=== PATIENT | female | born 1995 | race Caucasian/White ===

== ENCOUNTER → 2021-02-03 12:31 | Outpatient (CLI) | payer OTHER, SELFPAY ==
[2021-02-03 13:12] LABS: Add Manual Diff / Slide Review NO; Basophils Absolute Auto 100 /uL (0-100); Basophils Percent Auto 0.4 % (0-2); Eosinophils Absolute Auto 100 /uL (0-450); Eosinophils Percent Auto 0.7 % (2-4); Hematocrit 38.8 % (36-46); Hemoglobin 13.1 g/dL (12.0-16.0); Lymphocytes Absolute Auto 2400 /uL (1100-4500); Lymphocytes Percent Auto 19.8 % (25-40); Mean Corpuscular HGB Conc 33.8 % (30-36); Mean Corpuscular Hemoglobin 30.9 PG (26-34); Mean Corpuscular Volume 91.3 fL (80-100); Monocytes Absolute Auto 500 /uL (0-900); Monocytes Percent Auto 4.5 % (3-14); Neutrophils Absolute Auto 8900 /uL (1500-7000); Neutrophils Percent Auto 74.6 % (50-75); Platelet Count 336 X10^3/uL (150-400); Red Blood Cell Count 4.25 X10^6/uL (4.0-5.2); Red Cell Distribution Width 13.1 % (11.6-14.8)
[2021-02-03 13:36] LABS: Appearance Urine UA CLEAR; Bilirubin Urine UA NEGATIVE (NEGATIVE); Color Urine UA YELLOW; Glucose Urine UA NEGATIVE (Negative); Ketones Urine UA NEGATIVE (NEGATIVE); Leukocyte Esterase Urine UA NEGATIVE (NEGATIVE); Nitrite Urine UA NEGATIVE (Negative); Occult Blood Urine UA NEGATIVE (Negative); Protein Urine UA NEGATIVE (Negative); Specific Gravity Urine UA <=1.005 (1.000-1.035); Urobilinogen Urine UA 0.2 E.U./dL (0.2)
[2021-02-03 13:37] LABS: pH Urine UA 6.5 (4.5-8.0)
[2021-02-03 19:50] LABS: Rubella Antibody IgG 9.6 IU/mL (>15)
[2021-02-03 19:58] LABS: Hepatitis B Surface Antigen NEGATIVE s/c (NEGATIVE)
[2021-02-03 20:13] LABS: HIV 1 & 2 Ab/Ag 4th Gen Combo NEGATIVE (NEGATIVE); Hep C Virus Ab w/Reflex Quant NEGATIVE s/c (NEGATIVE)
[2021-02-04 06:10] LABS: RPR Screen Non Reactive (Non Reactive)
[2021-02-04 15:11] LABS: Varicella IgG Antibody 455 index (Immune >165)
== END ==
PROVIDERS: Referring Provider Specialist; Visit Provider Specialist
DX: Z34.81 Encounter for supervision of other normal pregnancy, first trimester (principal)
CPT/HCPCS: 36415; 80055; 81003; 86787; 86803; 86850; 86900; 86901; 87086; 87389

== ENCOUNTER → 2021-05-01 11:59 | Outpatient (CLI) | payer OTHER, SELFPAY ==
--- NOTE | 2021-05-01 12:00 | DI.US.S_ITS ---
PROCEDURE: US OB >= 14 WEEKS FETUS INDICATIONS: ANATOMY OUTSIDE/PRIOR DATING DATA: Last menstrual period (LMP): 12/03/2020. LMP-based estimated date of delivery (MELVIN): . First dating scan (date and location): 02/03/2021. Estimated date of delivery (MELVIN) from first dating scan: 09/18/2021. TECHNIQUE: Real-time scanning was performed of the fetus, with image documentation and biometric measurements. Endovaginal scanning: Not performed. COMPARISON: [facility], , OB >= 14 WEEKS FETUS, 04/07/2021, 11:21. [facility], , OB <= 14 WEEKS FETUS, 02/03/2021, 12:13. [facility], , OB >= 14 WEEKS FETUS, 03/03/2021, 10:50. FINDINGS: General: A single living intrauterine gestation is present. Presentation: Variable. Placenta: Placental position is posterior , without previa. Amniotic fluid index: 16.1 cm, normal range is 5-24 cm. heart rate: 80-195 beats per minute. Maternal cervical canal: 3.5 cm long. Normal lower limit is 2.5 cm. biometrics: Biparietal diameter: 21 weeks 0 day Head circumference: 20 weeks 4 days Abdominal circumference: 21 weeks 4 days Femur length: 20 weeks 4 days Estimated gestational age from initial scan: 20 weeks 0 day. Composite gestational age from present scan: 21 weeks 0 day Estimated weight and percentile: 397 g; 94% for gestation age. Measurement variability for biometric dating: +/- 7 days from 14 weeks to 15 weeks 6 days gestation, +/- 10 days from 16 weeks to 21 weeks 6 days gestation, +/- 2 weeks from 22 weeks to 27 weeks 6 days gestation, +/- 3 weeks for 28 weeks gestation or later. weight reference: 4500 g or EFW >90/95% is considered macrosomia or large for gestational age. EFW <10% is small for gestational age. EFW 5% or less is considered intra-uterine growth restriction. Anatomic survey: Neuro: Ventricles are non-dilated at less than 10 mm. Cisterna magna is normal at 3-11 mm. Cerebellum is normal in size and morphology. Nuchal skin fold: 6.0 mm. (less than 6 mm between 14-21 weeks gestational age). Face: Nose and lips, facial profile are normal. Spine: No evidence for spina bifida. Heart: 4-chambered heart is present, with normal ventricular outflow tracts. Diaphragm: Diaphragm is intact. Stomach: Left-sided stomach is present. Kidneys: No hydronephrosis. Normal is less than 5 mm in 2nd trimester, less than 7 mm in 3rd trimester. Cord: 3-vessel cord has orthotopic insertion. Bladder: Normal in size. Extremities: All 4 extremities identified. IMPRESSION: 1. A single living intrauterine gestation with appropriate interval growth. 2. heart rate highly variable with acceleration and deceleration during the scan ( heart rate from 80-195 BPM). 3. Nuchal fold measures 6.0 mm, just above the normal limits. 4. Otherwise normal anatomic survey. 5. weight at the 94th percentile. The preliminary result was given to by ground source heat pump technician. Dictated by: Jack Ho M.D. on 05/01/2021 at 15:10 Approved by: Jack Ho M.D. on 05/01/2021 at 15:24
== END ==
PROVIDERS: Referring Provider Specialist; Visit Provider Specialist
DX: Z34.82 Encounter for supervision of other normal pregnancy, second trimester (principal); Z3A.21 21 weeks gestation of pregnancy
CPT/HCPCS: 76811

== ENCOUNTER → 2021-05-08 08:23 | Outpatient (CLI) | payer OTHER, SELFPAY ==
[2021-05-08 09:35] LABS: Free T4, Direct Thyroxine 0.87 ng/dL (0.78-2.19)
[2021-05-08 09:49] LABS: Thyroid Stimulating Hormone 1.24 uIU/mL (0.47-4.68)
[2021-05-09 00:32] LABS: Alpha Fetoprotein 39.4 ng/mL (0.0-8.3); Thyroid Peroxidase Antibodies <8 IU/mL (0-34)
[2021-05-09 17:41] LABS: SS A Ro Sjogrens Antibody < 0.2 AI (0.0-0.9); SS B La Sjogrens Antibody < 0.2 AI (0.0-0.9)
[2021-05-09 18:11] LABS: Anti Thyroglobulin Antibody <1.0 IU/mL (0.0-0.9)
[2021-05-09 18:11] LABS: Anti Thyroglobulin Antibody <1.0 IU/mL (0.0-0.9)
== END ==
PROVIDERS: Referring Provider Specialist; Visit Provider Specialist
DX: O35.9XX0 Maternal care for (suspected) fetal abnormality and damage, unspecified, not applicable or unspecified (principal)
CPT/HCPCS: 36415; 82105; 84439; 84443; 86235; 86376; 86800

== ENCOUNTER → 2021-06-06 08:01 | Outpatient (CLI) | payer OTHER, SELFPAY ==
[2021-06-06 09:54] LABS: Hemoglobin 11.4 g/dL (12.0-16.0)
[2021-06-06 10:25] LABS: GTT (PREG) 1 Hour PP 50gm Dose 140 mg/dL (76-139)
== END ==
PROVIDERS: PCP Student in an Organized Health Care Education/Training Program; Referring Provider Specialist; Visit Provider Specialist
DX: Z34.82 Encounter for supervision of other normal pregnancy, second trimester (principal); Z3A.26 26 weeks gestation of pregnancy
CPT/HCPCS: 36415; 82950; 85014; 85018

== ENCOUNTER → 2021-06-11 07:32 | Outpatient (CLI) | payer OTHER, SELFPAY ==
[2021-06-11 10:19] LABS: Glucose Fasting Gestational 89 mg/dL (76-95)
[2021-06-11 10:21] LABS: Glucose 1 Hour Gest 149 mg/dL (76-180)
[2021-06-11 10:51] LABS: Glucose Tol Interp,Gestational INTERPRETATION
[2021-06-11 11:01] LABS: Glucose 2 Hour Gest 108 mg/dL (76-155)
[2021-06-11 12:44] LABS: Glucose 3 Hour Gest 103 mg/dL (76-140)
== END ==
PROVIDERS: PCP Student in an Organized Health Care Education/Training Program; Referring Provider Specialist; Visit Provider Specialist
DX: O99.810 Abnormal glucose complicating pregnancy (principal)
CPT/HCPCS: 36415; 82951; 82952

== ENCOUNTER → 2021-08-12 14:40 | Outpatient (CLI) | payer OTHER, SELFPAY ==
[2021-08-13 09:00] LABS: Strep Grp B PCR NEG for Grp B Strep
== END ==
PROVIDERS: PCP Student in an Organized Health Care Education/Training Program; Visit Provider Specialist
DX: Z34.83 Encounter for supervision of other normal pregnancy, third trimester (principal); Z3A.36 36 weeks gestation of pregnancy
CPT/HCPCS: 87653

== ENCOUNTER 2021-09-07 07:35 | Inpatient (IN) | payer OTHER, SELFPAY ==
[2021-09-07 09:06] LABS: COVID19 -Nasal RAPID Negative (Negative)
[2021-09-07] MEDS: LACTATED RINGERS 1,000 ML 100 ML IV ×2 (09:16→12:08)
[2021-09-07] MEDS: OXYTOCIN PREMIX 30 UNIT/500 ML PLAST..BAG IV (09:16)
[2021-09-07 09:47] VITALS: BP 119/73
--- NOTE | 2021-09-07 09:51 | PM.OBHP.1 ---
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 Workup totally normal. cardiology recommend EKG follow-up on baby after delivery. Preadmission Labs Blood type: B (+) positive -: Antibody screen: negative, GBS status: negative, HBsAG: negative, HIV: negative and RPR/VDLR: negative -: Chlamydia screen: not detected and Gonorrhea screen: not detected -: Rubella: not immune and Varicella: immune HCAB: negative 1 hr GTT: 140 3 hr GTT: 1 hr (149), 2 hr (108) and 3 hr (103) Fasting blood glucose: 89 Prior (ies) History: 08/31/2019 40 week gestation 8 lb 2 oz female Evaluation Evaluation Baseline heart rate: 150 Variability: Moderate (11-25) monitor accelerations: Present Monitor Decelerations: Absent Contraction Frequency (minutes): 0 Category of Tracing: Reactive Status: Category l Dilation (cm): 3 Effacement (%): 6 station: -2 Position of cervix: mid Consistency: soft PFSH Medical History (Updated 05/07/21 @ 18:18 by Renetta Johnson MD) Abnormal Pap smear of cervix (~10/2018) Accident (~2014) Acid reflux (~2013) Chicken pox (~1994) Chlamydia contact, treated (~2013) 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 Sister Asthma Family/Other Cancer Breast cancer Melanoma Swelling Social History marital status: household members: other (Share a living space with X 5 people ) lives independently: No ([place] will get Base Housing ) pets and animals: Yes (X 2 dogs and X 1 cat (indoor cat) in their shared living space ) education level: high school occupational status: employed ([employer] : [employer]) current occupational exposures/hazards: Yes rohit/zoroastrianism: Scientologist special rohit needs: No Smoking Status: Never smoker second hand exposure: No alcohol intake: former (Stopped before daughter was born ) substance use type: does not use Meds Home Medications and Allergies Home Medications Medication Instructions Recorded Confirmed Type prenat.vits,leann,tut-atji-[id number] 1 tab PO DAILY 01/28/21 09/07/21 History Allergies Allergy/AdvReac Type Severity Reaction Status Date / Time No Known Drug Allergies Allergy Verified 09/07/21 09:50 Review of Systems Review of Systems Narrative: No headaches, scotomata, epigastric pain. Good movement. No leakage of fluid. No fevers. OB Exam Narrative Exam Narrative: HEENT exam within normal limits. Lungs are clear to auscultation percussion. Heart is regular rate and rhythm no S3-S4 murmurs. Abdomen is soft, nontender. Fetus is vertex. Extremities without edema and nontender. Objective Labs Result Diagrams: 09/07/21 09:45 Labs: Laboratory Results - last 24 hr 09/07/21 08:41 SARS-CoV-2 (PCR) Negative Assessment and Plan Assessment and Plan Assessment and Plan narrative: 39 week gestation with favorable of cervix requesting induction for child and adolescent therapist issues. 2nd trimester bradycardia with cardiology workup negative. heart rate has been normal since. Cardiology recommended EKG on the baby after delivery.
[2021-09-07 09:59] LABS: Add Manual Diff / Slide Review NO; Basophils Absolute Auto 0 /uL (0-100); Basophils Percent Auto 0.2 % (0-2); Eosinophils Absolute Auto 0 /uL (0-450); Eosinophils Percent Auto 0.4 % (2-4); Hematocrit 29.2 % (36-46); Hemoglobin 9.9 g/dL (12.0-16.0); Lymphocytes Absolute Auto 1200 /uL (1100-4500); Lymphocytes Percent Auto 14.2 % (25-40); Mean Corpuscular Hemoglobin 31.1 PG (26-34); Mean Corpuscular Volume 91.7 fL (80-100); Monocytes Absolute Auto 500 /uL (0-900); Monocytes Percent Auto 5.7 % (3-14); Neutrophils Absolute Auto 6500 /uL (1500-7000); Neutrophils Percent Auto 79.5 % (50-75); Platelet Count 161 X10^3/uL (150-400); Red Blood Cell Count 3.18 X10^6/uL (4.0-5.2); Red Cell Distribution Width 13.5 % (11.6-14.8); White Blood Cell Count 8.2 X10^3/uL (4.5-11.0)
[2021-09-07] MEDS: FENT 2MCG/ML BUPIV 0.125% EPI 200 MCG/100 ML PLAST..BAG 12 MCG EPIDURAL (12:06)
--- NOTE | 2021-09-07 15:54 | PM.OBPRVD ---
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 She was started on Pitocin. She had AROM for clear fluid. She received an epidural catheter for pain control. heart tones category 1 to category 2 throughout labor. She had a spontaneous vaginal delivery over an intact perineum. The viable male infant was placed on maternal abdomen. After the cord stopped pulsating the cord was clamped, cut, and cord bloods obtained. The placenta delivered spontaneously, intact, with 3 vessels. There were no cervical or vaginal tears. A first-degree perineal tear was repaired with 3 0 chromic suture in the usual 2 layer fashion. Both and mother are doing well. [place] Baby 1: gender: Male Presentation: vertex Position: Right Occiput Anterior Placenta delivery description: Spontaneous Cord Vessel Description: 3 Vessels, Nuchal Cord and Loose score (1 min): 8 score (5 min): 9 Plan for aftercare: Routine care
[2021-09-07] MEDS: LANOLIN OINT 7 GM 1 APPLIC TOP (18:40)
[2021-09-07] MEDS: IBUPROFEN 600 MG TABLET PO (21:03)
[2021-09-07] MEDS: FERROUS SULFATE 325 MG TABLET PO (21:04)
[2021-09-07] MEDS: ACETAMINOPHEN 325 MG TABLET 650 MG PO (21:04)
[2021-09-08] MEDS: IBUPROFEN 600 MG TABLET PO ×3 (03:12→15:18)
[2021-09-08] MEDS: ACETAMINOPHEN 325 MG TABLET 650 MG PO ×3 (03:12→15:18)
[2021-09-08 06:53] LABS: Add Manual Diff / Slide Review NO; Basophils Absolute Auto 0 /uL (0-100); Basophils Percent Auto 0.4 % (0-2); Eosinophils Absolute Auto 100 /uL (0-450); Eosinophils Percent Auto 0.6 % (2-4); Hematocrit 34.3 % (36-46); Hemoglobin 11.7 g/dL (12.0-16.0); Lymphocytes Absolute Auto 1600 /uL (1100-4500); Lymphocytes Percent Auto 12.7 % (25-40); Mean Corpuscular HGB Conc 34.1 % (30-36); Mean Corpuscular Hemoglobin 31.2 PG (26-34); Mean Corpuscular Volume 91.7 fL (80-100); Monocytes Absolute Auto 700 /uL (0-900); Monocytes Percent Auto 5.9 % (3-14); Neutrophils Absolute Auto 10200 /uL (1500-7000); Neutrophils Percent Auto 80.4 % (50-75); Platelet Count 175 X10^3/uL (150-400); Red Blood Cell Count 3.75 X10^6/uL (4.0-5.2); Red Cell Distribution Width 13.8 % (11.6-14.8); White Blood Cell Count 12.7 X10^3/uL (4.5-11.0)
[2021-09-08] MEDS: FERROUS SULFATE 325 MG TABLET PO (08:13)
--- NOTE | 2021-09-08 09:36 | P.DS_ITS ---
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 She had a spontaneous vaginal delivery with repair of a first-degree tear. She is breast-feeding without difficulty. She is urinating and ambulating well. No headaches, scotomata, epigastric pain. Peripartum Data Infant Delivery Method: Natural Vaginal Laceration Description: Perineal - 1st Degree Procedures: Pitocin induction, epidural catheter, spontaneous vaginal delivery, repair of first-degree tear complications: none [place] 1: Gender: Male Disposition of : home Discharge Diagnosis (1) Vaginal delivery: Status: Acute Status at Discharge Cognitive/behavioral status at discharge: oriented Functional status at discharge: independent ambulation Overall status at discharge: patient is progressing back to baseline Time Spent with Patient Time attestation: Total time spent providing and/or coordinating discharge services: Time spent: Less than 30 minutes Objective Labs Result Diagrams: 09/08/21 06:32 Labs: Laboratory Results - last 24 hr 09/07/21 09/07/21 09/08/21 09:45 09:45 06:32 WBC 8.2 12.7 H D RBC 3.18 L 3.75 L Hgb 9.9 L 11.7 L Hct 29.2 L 34.3 L MCV 91.7 91.7 MCH 31.1 31.2 MCHC 34.0 34.1 RDW 13.5 13.8 Plt Count 161 175 Neut % (Auto) 79.5 H 80.4 H Lymph % (Auto) 14.2 L 12.7 L [place] % (Auto) 5.7 5.9 Eos % (Auto) 0.4 L 0.6 L Baso % (Auto) 0.2 0.4 Neut # (Auto) 6500 86496 H Lymph # (Auto) 1200 1600 [place] # (Auto) 500 700 Eos # (Auto) 0 100 Baso # (Auto) 0 0 Blood Type B Positive Antibody Screen Negative Exam Vital Signs (past 8 hours): Patient's blood pressure 125/78, pulse of 84, temperature 98.2? Narrative Exam Narrative: Abdomen is soft, nontender. Uterus is firm, at U, nontender. Repair is intact. Mild lochia. Extremities without edema and nontender. Patient is B positive, rubella nonimmune so will receive the rubella vaccine prior to discharge, she received the Tdap in 3rd trimester. Discharge Plan Discharge Plan Patient Disposition: Home Discharge orders & Medications Prescriptions: Continued prenat.vits,leann,rxc-hwnt-sdqzr Tablet 1 tab PO DAILY 0RF Follow up/Referrals: Renetta Johnson MD [Physician] - 6 Weeks Trevon Penn [Primary Care Provider] - Diet/Activity/Treatments Diet: Diet as Tolerated Activity: Nothing in vagina for 6 weeks Visit Report/Discharge Packet Stand Alone Forms: Discharge: Care Discharge Data Primary Care Provider: Trevon Penn
[2021-09-08] MEDS: MEASLES,MUMPS,RUBELLA VACC/PF 0.5 ML VIAL SUBCUT (13:06)
[2021-09-08] MEDS: DOCUSATE 100 MG CAPSULE PO (15:18)
[2021-09-08 17:02] VITALS: BP 125/78; PULSE 84; RESP 20; TEMP 36.8
== END 2021-09-08 15:50 | disposition home or self-care (01) | DRG 807 ==
PROVIDERS: Admitting Provider Specialist; PCP Student in an Organized Health Care Education/Training Program; Referring Provider Specialist; Visit Provider Specialist
DX: O70.0 First degree perineal laceration during delivery (principal); Z37.0 Single live birth; Z3A.39 39 weeks gestation of pregnancy; O69.81X0 Labor and delivery complicated by cord around neck, without compression, not applicable or unspecified; Z20.822 Contact with and (suspected) exposure to COVID-19
CPT/HCPCS: 01967; 36415; 59050; 59400; 85025; 86850; 86900; 86901; 87635; C9803; G0379; J2590

== ENCOUNTER → 2022-09-03 11:25 | Outpatient (CLI) | payer OTHER, SELFPAY ==
[2022-09-03 16:28] LABS: Urine N gonorrhoeae NOT DETECTED
[2022-09-03 16:33] LABS: Urine Chlamydia NOT DETECTED
== END ==
PROVIDERS: PCP Student in an Organized Health Care Education/Training Program; Visit Provider Obstetrics & Gynecology
DX: Z34.81 Encounter for supervision of other normal pregnancy, first trimester (principal); Z3A.11 11 weeks gestation of pregnancy
CPT/HCPCS: 87491; 87591

== ENCOUNTER → 2022-09-03 11:50 | Outpatient (CLI) | payer OTHER, SELFPAY ==
[2022-09-03 13:35] LABS: Bilirubin Urine UA NEGATIVE (NEGATIVE); Color Urine UA YELLOW; Glucose Urine UA NEGATIVE (Negative); Ketones Urine UA NEGATIVE (NEGATIVE); Leukocyte Esterase Urine UA NEGATIVE (NEGATIVE); Nitrite Urine UA NEGATIVE (Negative); Occult Blood Urine UA NEGATIVE (Negative); Protein Urine UA NEGATIVE (Negative); Specific Gravity Urine UA 1.025 (1.000-1.035)
[2022-09-03 13:39] LABS: Appearance Urine UA Clear
[2022-09-03 13:41] LABS: Add Manual Diff / Slide Review NO; Basophils Absolute Auto 0 /uL (0-100); Basophils Percent Auto 0.2 % (0-2); Eosinophils Absolute Auto 100 /uL (0-450); Eosinophils Percent Auto 0.8 % (2-4); Hematocrit 38.9 % (36-46); Hemoglobin 13.1 g/dL (12.0-16.0); Lymphocytes Absolute Auto 1900 /uL (1100-4500); Lymphocytes Percent Auto 19.7 % (25-40); Mean Corpuscular HGB Conc 33.7 % (30-36); Mean Corpuscular Hemoglobin 30.3 PG (26-34); Mean Corpuscular Volume 89.7 fL (80-100); Monocytes Absolute Auto 400 /uL (0-900); Monocytes Percent Auto 4.5 % (3-14); Neutrophils Absolute Auto 7000 /uL (1500-7000); Neutrophils Percent Auto 74.8 % (50-75); Platelet Count 281 X10^3/uL (150-400); Red Blood Cell Count 4.33 X10^6/uL (4.0-5.2); Red Cell Distribution Width 12.9 % (11.6-14.8); White Blood Cell Count 9.4 X10^3/uL (4.5-11.0)
[2022-09-04 06:40] LABS: RPR Screen Non Reactive (Non Reactive); Varicella IgG Antibody 453 index (Immune >165)
[2022-09-06 15:23] LABS: Hepatitis B Surface Antigen NEGATIVE s/c (NEGATIVE)
[2022-09-06 15:40] LABS: HIV 1 & 2 Ab/Ag 4th Gen Combo NEGATIVE (NEGATIVE); Hep C Virus Ab w/Reflex Quant NEGATIVE s/c (NEGATIVE)
== END ==
PROVIDERS: PCP Student in an Organized Health Care Education/Training Program; Referring Provider Obstetrics & Gynecology; Visit Provider Obstetrics & Gynecology
DX: Z34.81 Encounter for supervision of other normal pregnancy, first trimester (principal); Z3A.11 11 weeks gestation of pregnancy
CPT/HCPCS: 36415; 80055; 81003; 86787; 86803; 86850; 86900; 86901; 87086; 87389; 87491; 87591

== ENCOUNTER → 2022-11-01 10:12 | Outpatient (CLI) | payer OTHER, SELFPAY ==
--- NOTE | 2022-11-01 10:14 | DI.US.S_ITS ---
PROCEDURE: US OB >= 14 WEEKS FETUS INDICATIONS: ANATOMY OUTSIDE/PRIOR DATING DATA: Last menstrual period (LMP): 06/05/2022. LMP-based estimated date of delivery (MELVIN): 03/22/2023. First dating scan (date and location): Today's exam. Estimated date of delivery (MELVIN) from first dating scan: 03/21/2023. The calculations are made using the ultrasound MELVIN of 03/21/2023. TECHNIQUE: Real-time scanning was performed of the fetus, with image documentation and biometric measurements. Endovaginal scanning: Not performed COMPARISON: [facility], , OB >= 14 WEEKS FETUS, 06/30/2021, 11:14. FINDINGS: General: A single living intrauterine gestation is present. Presentation: Variable. Placenta: Placental position is posterior, without previa. Amniotic fluid index: 16.6 cm, normal range is 5-24 cm. Single deepest vertical pocket is 4.6 cm. heart rate: 149 beats per minute. Maternal cervical canal: 4.6 cm long. Normal lower limit is 2.5 cm. biometrics: Biparietal diameter: 4.5 cm, 19 weeks 5 days Head circumference: 17.5 cm, 20 weeks Abdominal circumference: 15.4 cm, 20 weeks 4 days Femur length: 3.2 cm, 19 weeks 6 days Clinically estimated gestational age: 21 weeks 2 days Composite gestational age from present scan: 20 weeks 0 days Estimated weight and percentile: 337 g, corresponding to 6 percentile Anatomic survey: Neuro: Ventricles are non-dilated at less than 10 mm. Cisterna magna is normal at 3-11 mm. Cerebellum is normal in size and morphology. Nuchal skin fold: Normal at less than 6 mm between 14-21 weeks gestational age. Face: Nose and lips, facial profile are normal. Spine: No evidence for spina bifida. Heart: 4-chambered heart is present, with normal ventricular outflow tracts. Diaphragm: Diaphragm is intact. Stomach: Left-sided stomach is present. Kidneys: No hydronephrosis. Normal is less than 5 mm in 2nd trimester, less than 7 mm in 3rd trimester. Cord: 3-vessel cord has orthotopic insertion. Bladder: Normal in size. Extremities: All 4 extremities identified. IMPRESSION: 1. Single living intrauterine at 20 weeks and 0 days, corresponding to MELVIN of 03/21/2023 based on today's ultrasound. 2. Estimated weight of 337 g, corresponding to 6 percentile. We strive to produce accurate, complete, and clear reports of imaging services. To assist us in improving patient care, this report was composed using standard report templates and voice recognition software. Therefore, it may contain abnormal punctuation, insertions and/or omissions. Occasional wrong-word or sound-alike substitutions may occur. Though we review the report and make efforts to correct it, we do recommend that the report be read carefully in proper context to recognize any text inaccuracies. Dictated by: Kimani Alfonso M.D. on 11/01/2022 at 11:57 Approved by: Kimani Alfonso M.D. on 11/01/2022 at 12:03
== END ==
PROVIDERS: PCP Student in an Organized Health Care Education/Training Program; Referring Provider Obstetrics & Gynecology; Visit Provider Obstetrics & Gynecology
DX: Z34.82 Encounter for supervision of other normal pregnancy, second trimester (principal); Z3A.20 20 weeks gestation of pregnancy
CPT/HCPCS: 76811

== ENCOUNTER → 2022-11-30 09:48 | Outpatient (CLI) | payer OTHER, SELFPAY ==
--- NOTE | 2022-11-30 09:49 | DI.US.S_ITS ---
PROCEDURE: US OB LIMITED INDICATIONS: SGA OUTSIDE/PRIOR DATING DATA: Last menstrual period (LMP): 06/05/2022. LMP-based estimated date of delivery (MELVIN): 03/12/2023. First dating scan (date and location): 11/01/2022. Estimated date of delivery (MELVIN) from first dating scan: 03/21/2023. TECHNIQUE: Real-time scanning was performed of the fetus, with image documentation and biometric measurements. Endovaginal scanning: Not performed COMPARISON: [facility], , OB >= 14 WEEKS FETUS, 11/01/2022, 10:33. FINDINGS: General: A single living intrauterine gestation is present. Presentation: Breech. Placenta: Placental position is posterior , without previa. Amniotic fluid index: 17.2 cm, normal range is 5-24 cm. Single deepest vertical pocket is 5.2 cm. heart rate: 153 beats per minute. Maternal cervical canal: 4.8 cm long. Normal lower limit is 2.5 cm. biometrics: Biparietal diameter: 5.9 cm 24 weeks 0 days Head circumference: 22.1 cm 24 weeks 1 day Abdominal circumference: 20.3 cm 24 weeks 6 days Femur length: 4.4 cm 24 weeks 2 days estimated gestational age: 24 weeks 1 day Composite gestational age from present scan: 24 weeks 2 days Estimated weight and percentile: 708 g, 60th percentile Other: Not applicable. IMPRESSION: 1. Single living intrauterine in breech presentation. 2. Estimated weight at the 60th percentile. We strive to produce accurate, complete, and clear reports of imaging services. To assist us in improving patient care, this report was composed using standard report templates and voice recognition software. Therefore, it may contain abnormal punctuation, insertions and/or omissions. Occasional wrong-word or sound-alike substitutions may occur. Though we review the report and make efforts to correct it, we do recommend that the report be read carefully in proper context to recognize any text inaccuracies. Dictated by: Eduin Olivarez M.D. on 11/30/2022 at 14:24 Approved by: Eduin Olivarez M.D. on 11/30/2022 at 14:32
== END ==
PROVIDERS: PCP Student in an Organized Health Care Education/Training Program; Referring Provider Obstetrics & Gynecology; Visit Provider Obstetrics & Gynecology
DX: Z3A.24 24 weeks gestation of pregnancy; O36.5920 Maternal care for other known or suspected poor fetal growth, second trimester, not applicable or unspecified
CPT/HCPCS: 76815

== ENCOUNTER → 2022-12-20 07:48 | Outpatient (CLI) | payer OTHER, SELFPAY ==
[2022-12-20 10:01] LABS: Hematocrit 34.3 % (36-46); Hemoglobin 11.8 g/dL (12.0-16.0)
[2022-12-20 10:29] LABS: GTT (PREG) 1 Hour PP 50gm Dose 105 mg/dL (76-139)
== END ==
PROVIDERS: PCP Student in an Organized Health Care Education/Training Program; Referring Provider Obstetrics & Gynecology; Visit Provider Obstetrics & Gynecology
DX: Z34.82 Encounter for supervision of other normal pregnancy, second trimester (principal); Z3A.26 26 weeks gestation of pregnancy
CPT/HCPCS: 36415; 82950; 85014; 85018

== ENCOUNTER → 2023-01-10 12:19 | Outpatient (CLI) | payer OTHER, SELFPAY ==
--- NOTE | 2023-01-10 12:20 | DI.US.S_ITS ---
PROCEDURE: US OB LIMITED INDICATIONS: GROWTH ULTRASOUND OUTSIDE/PRIOR DATING DATA: Last menstrual period (LMP): 06/05/2022 LMP-based estimated date of delivery (MELVIN): 03/12/2023 First dating scan (date and location): 11/01/2022 Estimated date of delivery (MELVIN) from first dating scan: 03/21/2023 The calculations are made using the working MELVIN of 03/21/2023. TECHNIQUE: Real-time scanning was performed of the fetus, with image documentation and biometric measurements. Endovaginal scanning: Not indicated COMPARISON: [facility], US OB LIMITED, 11/30/2022, 10:05. FINDINGS: General: A single living intrauterine gestation is present. Presentation: Breech Placenta: Placental position is posterior, without previa. Amniotic fluid index: 19.9 cm, normal range is 5-24 cm. Single deepest vertical pocket is 6.2 cm. heart rate: 135 beats per minute. Maternal cervical length: 4.3 cm long. Normal lower limit is 2.5 cm. biometrics: Biparietal diameter: 7.6 cm, 30 weeks, 5 days. Head circumference: 27.9 cm, 30 weeks, 4 days. Abdominal circumference: 26.6 cm, 30 weeks, 5 days. Femur length: 5.8 cm, 30 weeks, 2 days. Clinically estimated gestational age: 30 weeks, 0 day. Composite gestational age from present scan: 30 weeks, 4 days. Estimated weight and percentile: 1597 grams, 58 percent. Other: Not applicable. IMPRESSION: 1. Single live intrauterine gestation with fetus in breech presentation. heart rate is 135 beats per minute. Normal amount of amniotic fluid. Normal growth. Estimated weight is at 58 percent. We strive to produce accurate, complete, and clear reports of imaging services. To assist us in improving patient care, this report was composed using standard report templates and voice recognition software. Therefore, it may contain abnormal punctuation, insertions and/or omissions. Occasional wrong-word or sound-alike substitutions may occur. Though we review the report and make efforts to correct it, we do recommend that the report be read carefully in proper context to recognize any text inaccuracies. Dictated by: Mc Ernandez M.D. on 01/10/2023 at 13:54 Approved by: Mc Ernandez M.D. on 01/10/2023 at 13:56
== END ==
PROVIDERS: PCP Student in an Organized Health Care Education/Training Program; Referring Provider Obstetrics & Gynecology; Visit Provider Obstetrics & Gynecology
DX: O26.13 Low weight gain in pregnancy, third trimester (principal); Z3A.30 30 weeks gestation of pregnancy
CPT/HCPCS: 76815

== ENCOUNTER 2023-02-01 17:19 | Observation (INO) | payer OTHER, SELFPAY ==
--- NOTE | 2023-02-01 18:42 | PM.OBTRLD ---
Visit Information Visit Information Date of evaluation: 02/01/23 Primary OB Provider: Layo Corbett On-call OB Provider: Karo Rodriguez Reason for Evaluation: Yes other Comments/Additional reasons for admission: 27YO @ 33wks 0 days here for evaluation of not feeling well. Was sitting at work and started to feel unwell a few hours ago: lightheaded, dizzy with low pubic discomfort and mild cramping. No vaginal bleeding or leaking of fluid. Vital Signs Vital Signs: BP 119/71, HR 109, T 36.4C Temporal, SpO2 96% on RA HR 83 on discharge after 1L LR IVFB. 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 ) rohit/lutheran: Yarsanism special rohit needs: No travel history: over 6 months ago seatbelt use: always water heater temp set < 120 deg: Yes working smoke detector in home: Yes fire extinguisher in home: Yes carbon monox detector in home: Yes firearms in home: Yes firearms unloaded and locked: Yes do you feel safe at home: Yes Smoking Status: Never smoker second hand exposure: No alcohol intake: former (~1/week when not ) substance use type: does not use during the past year weight has: remained stable well-balanced diet: about half the time daily servings fruits/ve-1 (1-2) caffeine: Yes Type(s) of exercise: none Review of Systems Review of Systems ROS: Yes All systems reviewed with the patient and are negative except as otherwise documented Exam Vital Signs (past 8 hours): see above Presentation: vertex Objective Labs Labs: UA unremarkable, see chart for labs Evaluation Evaluation Baseline heart rate: 130 Variability: Moderate (11-25) monitor accelerations: Present Monitor Decelerations: Absent Category of Tracing: Reactive Comments: uterine irritability by toco upon arrival Diagnosis, Plan/Disposition Final Diagnosis (1) Dizziness of unknown cause: Status: Acute Plan/Disposition Plan: Dizziness and cramping resolved after 1L of IV fluids. Given resolution of tachycardia and presenting symptoms, patient was discharged to home with routine precautions. Follow-up with primary OB provider as previously scheduled. OB Disposition: home
[2023-02-01 18:55] LABS: Appearance Urine UA CLEAR; Bilirubin Urine UA NEGATIVE (NEGATIVE); Color Urine UA YELLOW; Glucose Urine UA NEGATIVE (Negative); Ketones Urine UA NEGATIVE (NEGATIVE); Leukocyte Esterase Urine UA TRACE (NEGATIVE); Nitrite Urine UA NEGATIVE (Negative); Occult Blood Urine UA NEGATIVE (Negative); Protein Urine UA NEGATIVE (Negative); Specific Gravity Urine UA 1.015 (1.000-1.035); Urobilinogen Urine UA 0.2 E.U./dL (0.2)
[2023-02-01 19:09] LABS: Bacteria Urine Few (2-10); Culture Indicated Urine Specimen Cultured; RBC Urine None Seen (0-5/HPF); Squamous Epithelial Cell Urine 5-10 /HPF (0-5/HPF); WBC Urine 0-1/HPF (0-5/HPF)
== END 2023-02-01 20:50 | disposition home or self-care (01) ==
LOC: LABOR 17:21
PROVIDERS: Nurse Practitioner Obstetrics & Gynecology; Admitting Provider Obstetrics & Gynecology; PCP Student in an Organized Health Care Education/Training Program; Referring Provider Obstetrics & Gynecology; Visit Provider Obstetrics & Gynecology
DX: O99.891 Other specified diseases and conditions complicating pregnancy (principal); O26.893 Other specified pregnancy related conditions, third trimester; R42 Dizziness and giddiness; R00.0 Tachycardia, unspecified; Z3A.33 33 weeks gestation of pregnancy
CPT/HCPCS: 59025; 59050; 81001; 87086; 96360; G0378; G0379

== ENCOUNTER → 2023-02-21 09:46 | Outpatient (CLI) | payer OTHER, SELFPAY ==
[2023-02-22 07:59] LABS: Strep Grp B PCR NEG for Grp B Strep
== END ==
PROVIDERS: PCP Student in an Organized Health Care Education/Training Program; Visit Provider Physician Assistant Medical
DX: Z34.83 Encounter for supervision of other normal pregnancy, third trimester (principal); Z3A.36 36 weeks gestation of pregnancy
CPT/HCPCS: 87653

== ENCOUNTER → 2023-02-24 12:27 | Outpatient (CLI) | payer OTHER, SELFPAY ==
--- NOTE | 2023-02-24 12:28 | DI.US.S_ITS ---
PROCEDURE: US OB LIMITED INDICATIONS: position check OUTSIDE/PRIOR DATING DATA: Last menstrual period (LMP): 06/05/2022. LMP-based estimated date of delivery (MELVIN): 03/12/2023. First dating scan (date and location): 11/01/2022. Estimated date of delivery (MELVIN) from first dating scan: 03/21/2023. The calculations are made using the sonographic MELVIN of 03/21/2023. TECHNIQUE: Real-time scanning was performed of the fetus, with image documentation. Endovaginal scanning: Not performed COMPARISON: [facility], OB LIMITED, 01/10/2023, 12:47. FINDINGS: A single living intrauterine gestation is present. Presentation: Vertex. Placenta: Placental position is left posterior, without previa. Amniotic fluid index: 13.7 cm, normal range is 5-24 cm. Single deepest vertical pocket is 6.1 cm. heart rate: 133 beats per minute. Maternal cervical canal: Not visualized IMPRESSION: Single living intrauterine in vertex position. Dictated by: Kimani Alfonso M.D. on 02/24/2023 at 16:02 Approved by: Kimani Alfonso M.D. on 02/24/2023 at 16:04
== END ==
PROVIDERS: PCP Student in an Organized Health Care Education/Training Program; Referring Provider Physician Assistant Medical; Visit Provider Physician Assistant Medical
DX: O32.1XX0 Maternal care for breech presentation, not applicable or unspecified (principal)
CPT/HCPCS: 76815

== ENCOUNTER 2023-03-17 11:29 | Inpatient (IN) | payer OTHER, SELFPAY ==
[2023-03-17] MEDS: LACTATED RINGERS 1,000 ML 100 ML IV (12:26)
[2023-03-17] MEDS: OXYTOCIN PREMIX 30 UNIT/500 ML PLAST..BAG IV (12:26)
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
[2023-03-17 13:04] VITALS: BP 123/80
[2023-03-17 13:07] VITALS: BP 123/80; PULSE 83; TEMP 36.2
[2023-03-17 13:30] LABS: Add Manual Diff / Slide Review NO; Basophils Absolute Auto 0 /uL (0-100); Basophils Percent Auto 0.1 % (0-2); Eosinophils Absolute Auto 0 /uL (0-450); Eosinophils Percent Auto 0.1 % (2-4); Hematocrit 33.3 % (36-46); Hemoglobin 11.4 g/dL (12.0-16.0); Lymphocytes Absolute Auto 1900 /uL (1100-4500); Lymphocytes Percent Auto 18.2 % (25-40); Mean Corpuscular HGB Conc 34.1 % (30-36); Mean Corpuscular Hemoglobin 30.1 PG (26-34); Mean Corpuscular Volume 88.2 fL (80-100); Monocytes Absolute Auto 600 /uL (0-900); Monocytes Percent Auto 6.2 % (3-14); Neutrophils Absolute Auto 7700 /uL (1500-7000); Neutrophils Percent Auto 75.4 % (50-75); Platelet Count 236 X10^3/uL (150-400); Red Blood Cell Count 3.78 X10^6/uL (4.0-5.2); White Blood Cell Count 10.3 X10^3/uL (4.5-11.0)
--- NOTE | 2023-03-17 14:51 | PM.AN.REGBLK ---
[facility] <Nghia Quinn MD - Last Filed: 03/17/23 14:54> Pre-procedure Procedure: Continuous Lumbar Epidural for L&D PMH/ROS narrative: PSH/Anesthesia history narrative: None Exam narrative: WNL Labs: Hct 33.3 % (36-46) L 03/17/23 12:15 Plt Count 236 X10^3/uL (150-400) 03/17/23 12:15 Medications: Current Medications Generic Name Dose Route Start Last Admin Trade Name Freq PRN Reason Stop Dose Admin Calcium Carbonate 1,000 mg 03/17/23 11:34 Calcium Carbonate 500 Mg Tab PO Q4HR PRN Dyspepsia Carboprost Tromethamine 250 mcg 03/17/23 11:34 Carboprost 250 Mcg/Ml Ampul IM Q90M PRN Bleeding Diphenhydramine HCl 25 mg 03/17/23 14:49 Diphenhydramine 50 Mg/Ml Vial IV Q10M PRN Pruritis Fentanyl 50 mcg 03/17/23 11:34 Fentanyl 100 Mcg/2 Ml Inj IV Q1H PRN Pain, Moderate (4-6) Oxytocin/Lactated Ringer's 30 unit in 500 mls @ 2 mls/hr 03/17/23 11:45 03/17/23 12:26 Oxytocin Premix IV 2 milliunit/min TITRATE MANASA 2 mls/hr Administration Protocol 2 MILLIUNIT/MIN Tranexamic Acid 1,000 mg/ 100 mls @ 200 mls/hr 03/17/23 11:34 Sodium Chloride IV NOW PRN Bleeding Lactated Ringer's 1,000 mls @ 100 mls/hr 03/17/23 11:45 03/17/23 12:26 Lactated Ringers IV 100 mls/hr CONT MANASA Administration Oxytocin/Lactated Ringer's 30 unit in 500 mls @ 200 mls/hr 03/17/23 11:34 Oxytocin Premix IV CONT PRN Bleeding Protocol FENT 2MCG/ML BUPIV 0.125% EPI 200 mcg in 100 mls @ 12 mls/hr 03/17/23 15:00 Fentanyl/Bupiv/Ns 2mcg/Ml - 0.125% EPIDURAL CONT MANASA Lidocaine HCl 20 ml 03/17/23 11:34 Lidocaine 1% 20 Ml INJ INTRA-OP PRN Post Delivery Methylergonovine Maleate 0.2 mg 03/17/23 11:34 Methylergonovine 0.2 Mg/Ml Vial IM NOW PRN Bleeding Methylergonovine Maleate 0.2 mg 03/17/23 11:34 Methylergonovine 0.2 Mg Tablet PO Q6HR PRN Heavy Bleeding Misoprostol 400 mcg 03/17/23 11:34 Misoprostol 200 Mcg Tablet SL NOW PRN Bleeding Misoprostol 800 mcg 03/17/23 11:34 Misoprostol 200 Mcg Tablet FL NOW PRN Bleeding Nalbuphine HCl 2.5 mg 03/17/23 14:49 Nalbuphine 20 Mg/Ml Ampul IV Q10M PRN Pruritis Naloxone HCl 0.2 mg 03/17/23 11:34 Naloxone 0.4 Mg/Ml Vial IV Q2MIN PRN Opiate Reversal Ondansetron HCl 8 mg 03/17/23 12:00 Ondansetron 4 Mg/2 Ml Inj IV Q6HR MANASA Oxytocin 10 unit 03/17/23 11:34 Oxytocin 10 Unit/Ml Vial IM NOW PRN Bleeding Allergies: Allergies Allergy/AdvReac Type Severity Reaction Status Date / Time No Known Drug Allergies Allergy Verified 03/16/23 08:09 Procedure Insertion date: 03/17/23 Insertion time: 14:45 Prep/Local: betadine x3 (Chloroprep) and 1% lidocaine Needle: 18 gauge Kirk Loss of resistance with: air MEGAN at (cm): 8 Catheter placed at SKIN (cm): 13 Catheter in SPACE (cm): 5 Initial Medications TEST DOSE time: 14:31 BOLUS DOSE time: 14:33 BOLUS DOSE (mL): 10 BOLUS DOSE med: 0.25% bupivacaine (And Fentanyl 100mcg) Infusion INFUSION: 0.125% bupivacaine and with fentanyl 2 mcg/mL Initial rate (mL/hr): 12 <Fahad Childs, DO - Last Filed: 03/17/23 18:11> Infusion Subsequent interventions: Post-procedure Anesthesia time START: 14:25 Anesthesia time END: 17:41 Post-procedure Anesthesia Assessment: Yes CV function: HR/BP stable, Yes Resp function: RR/sat/airway adequate, Yes Post-op hydration adequate, Yes Pain control adequate, Yes Nausea & vomiting absent, Yes Temperature > 36 C, Yes Mental status appropriate and No Anesthesia complications
--- NOTE | 2023-03-17 17:52 | P.PCNOB_ITS ---
Labor & Delivery Delivery date: 03/17/23 Intrapartal Events: None Induction method: per pitocin protocol Delivery augmentation: rupture of membranes Delivery monitor: external FHT and external uterine Route of delivery: Episiotomy description: None L&D Laceration Description: Perineal - 1st Degree Delivery repair: chromic Estimated blood loss (mL): 150 Anesthesia Type: Epidural Complications: None Narrative: Following a brief 2nd stage, the patient pushed spontaneously over an intact perineum a viable male who was vigorous at . A loose nuchal cord was reduced prior to delivery of the body and skin to skin contact was initiated immediately. Delayed cord clamping was performed and once the cord was doubly clamped and cut, a cord blood sample was obtained for routine studies. The placenta delivered with gentle cord traction and suprapubic countertraction. Following delivery of the placenta, intravenous Pitocin was initiated immediately and blood loss was minimal. The placenta was carefully inspected and found to be intact with a central cord insertion of a three-vessel umbilical cord. Inspection of the perineum showed a first-degree perineal laceration which required closure with 2-0 chromic in the usual manner due to oozing from the laceration. Sponge and needle counts were correct and both mother and infant were doing well at the completion of the delivery process. Harmans Baby 1: Presentation: vertex Position: Left Occiput Anterior Placenta delivery description: Spontaneous Cord Vessel Description: 3 Vessels and Nuchal Cord score (1 min): 9 score (5 min): 9 Plan for aftercare: Routine care
[2023-03-17] MEDS: FENT 2MCG/ML BUPIV 0.125% EPI 200 MCG/100 ML PLAST..BAG 12 MCG EPIDURAL (19:06)
[2023-03-17] MEDS: DOCUSATE 100 MG CAPSULE PO (21:38)
[2023-03-17] MEDS: ACETAMINOPHEN 325 MG TABLET 650 MG PO (21:38)
[2023-03-17] MEDS: IBUPROFEN 600 MG TABLET PO (21:38)
[2023-03-18] MEDS: ACETAMINOPHEN 325 MG TABLET 650 MG PO ×2 (03:10→08:46)
[2023-03-18] MEDS: IBUPROFEN 600 MG TABLET PO ×2 (03:10→08:47)
[2023-03-18 06:08] LABS: Add Manual Diff / Slide Review NO; Basophils Absolute Auto 100 /uL (0-100); Basophils Percent Auto 0.5 % (0-2); Eosinophils Absolute Auto 100 /uL (0-450); Eosinophils Percent Auto 0.7 % (2-4); Hematocrit 32.5 % (36-46); Hemoglobin 11.2 g/dL (12.0-16.0); Lymphocytes Absolute Auto 2100 /uL (1100-4500); Lymphocytes Percent Auto 18.6 % (25-40); Mean Corpuscular HGB Conc 34.5 % (30-36); Mean Corpuscular Hemoglobin 30.3 PG (26-34); Monocytes Absolute Auto 500 /uL (0-900); Monocytes Percent Auto 4.8 % (3-14); Neutrophils Absolute Auto 8500 /uL (1500-7000); Neutrophils Percent Auto 75.4 % (50-75); Platelet Count 210 X10^3/uL (150-400); Red Blood Cell Count 3.69 X10^6/uL (4.0-5.2); Red Cell Distribution Width 13.3 % (11.6-14.8); White Blood Cell Count 11.2 X10^3/uL (4.5-11.0)
[2023-03-18] MEDS: DOCUSATE 100 MG CAPSULE PO (08:46)
--- NOTE | 2023-03-18 12:14 | PM.OBDS.1 ---
Discharge Providers Provider Date of admission: 03/17/23 11:29 Discharge Date: 03/18/23 Primary care physician: Trevon Penn Discharge provider: Layo Corbett MD Summary Hospital Course Date Patient Seen: 03/18/23 Time Patient Seen: 12:26 Diagnoses: intrauterine gestation, 39+ 3 weeks gestational age, delivered by spontaneous vaginal Hospital Course: Tameka was admitted on the morning of 03/17/2023 for elective induction at 39+ 3 weeks gestational age due to extreme maternal discomfort. No cervical ripening was required but instead Pitocin was initiated and AROM performed. Patient received an epidural in labor and early on the evening of 03/17/2023 delivered spontaneously a viable male with Apgars of 9/9, weight 3713 g ( 8 lb 3 oz). She sustained a small first-degree perineal laceration which was repaired in the usual manner. Following delivery both mother and baby have done extremely well with the mother experiencing prompt return of bowel and bladder function, she is ambulating independently, tolerating regular diet, and her pain is well relieved with oral pain medications. She will be discharged at this time to home in an afebrile normotensive condition after counseling regarding precautionary symptoms, limitations of activity, medications, and plans for follow-up which will be in 6 weeks. Her is planning to get a vasectomy so no contraception is needed. Medications at discharge will include [id number] Tylenol and/or ibuprofen for pain relief, she will resume vitamins and omeprazole, and she will use either [id number] stool softeners and/ or MiraLax as needed for any symptoms of constipation. Peripartum Data Infant Delivery Method: Natural Vaginal Laceration Description: Perineal - 1st Degree Episiotomy description: None Procedures: Continuous lumbar epidural Spontaneous vaginal complications: none Cucumber 1: Gender: Male Disposition of : home Status at Discharge Cognitive/behavioral status at discharge: oriented Functional status at discharge: independent ambulation Overall status at discharge: patient is progressing back to baseline Time Spent with Patient Time attestation: Total time spent providing and/or coordinating discharge services: Time spent: Less than 30 minutes Objective Labs 03/18/23 05:50 Labs: Laboratory Results - last 24 hr 03/17/23 03/17/23 03/18/23 12:15 12:15 05:50 WBC 10.3 11.2 H RBC 3.78 L 3.69 L Hgb 11.4 L 11.2 L Hct 33.3 L 32.5 L MCV 88.2 88.0 MCH 30.1 30.3 MCHC 34.1 34.5 RDW 13.0 13.3 Plt Count 236 210 Neut % (Auto) 75.4 H 75.4 H Lymph % (Auto) 18.2 L 18.6 L Charles % (Auto) 6.2 4.8 Eos % (Auto) 0.1 L 0.7 L Baso % (Auto) 0.1 0.5 Neut # (Auto) 7700 H 8500 H Lymph # (Auto) 1900 2100 Charles # (Auto) 600 500 Eos # (Auto) 0 100 Baso # (Auto) 0 100 Blood Type B Positive Antibody Screen Negative Exam Const General: cooperative and comfortable Nutritional Appearance: average body habitus Orientation: alert and oriented x3 HENMT Head: normal to inspection, atraumatic and abrasion Ears: hearing grossly normal bilaterally Face and sinus: face symmetric Eyes General: appearance normal, both eyes and all related structures Conjunctivae: conjunctivae normal Sclera: sclerae normal EOM: EOM intact bilaterally Neck Neck: normal visual inspection Resp Effort & Inspection: normal respiratory effort and able to speak in complete sentences GI Inspection: normal to inspection Palpation: soft and no hepatosplenomegaly External Female Exam: other (No significant bleeding noted) Extrem General: no calf tenderness Psych Appearance: grossly normal Mental Status: mental status grossly normal Speech and Movement: speech and movement normal Mood: congruent mood Affect: normal affect Attitude: cooperative Thought Process: normal Thought Content: normal Judgment: judgment good Discharge Plan Discharge Plan Patient Disposition: Home Provider Discharge Comment: Please review the written instructions you received when you were discharged from the hospital. Your follow-up appointment will be scheduled for 6 weeks after delivery and I look forward to seeing you then. If in the meanwhile however you have any concerns, questions, or problems, please contact me either through the office phone at [phone], or via the patient portal. Discharge orders & Medications Prescriptions: Continued prenat.vits,leann,opc-kdbh-rpfgz Tablet 1 tab PO DAILY omeprazole 40 mg capsule,delayed release(DR/EC) 40 mg PO BID Qty: 60 6RF Follow up/Referrals: Trevon Penn [Primary Care Provider] - Layo Corbett MD [Physician] - Discharge Health Status Multidrug resistant organism: No MDRO Diet/Activity/Treatments Diet: Diet as Tolerated Activity: As tolerated Other treatments: Pxmi-jhe-hlyhirw Tylenol and/or Ibuprofen may be used for additional pain relief. Muxo-cqh-ksffour stool softeners and/or MiraLax may be used as needed constipation. Skin/Wound/Dressing Care Report to your healthcare provider any signs of infection, such as:: chills, fever, increased pain, unusual drainage and unusual redness Dressing: N/A Visit Report/Discharge Packet Instructions: DI for Labor and Delivery, Vaginal , DI for and Nipple Soreness Discharge Data Primary Care Provider: Trevon Penn
[2023-03-18 14:59] VITALS: BP 123/80; PULSE 83; RESP 16; TEMP 36.2
--- NOTE | 2023-03-21 13:30 | PC.NURSE ---
Epidural solution (36 mls) wasted w/ Kristi Howard RN
== END 2023-03-18 15:40 | disposition home or self-care (01) | DRG 807 ==
PROVIDERS: Admitting Provider Obstetrics & Gynecology; PCP Student in an Organized Health Care Education/Training Program; Referring Provider Obstetrics & Gynecology; Visit Provider Obstetrics & Gynecology
DX: O75.0 Maternal distress during labor and delivery (principal); Z37.0 Single live birth; Z3A.39 39 weeks gestation of pregnancy; O70.0 First degree perineal laceration during delivery; Z67.20 Type B blood, Rh positive
CPT/HCPCS: 36415; 59050; 59400; 85025; 86850; 86900; 86901; G0379; J2590

== ENCOUNTER → 2023-10-22 10:17 | Outpatient (CLI) | payer OTHER, SELFPAY ==
--- NOTE | 2023-10-22 10:20 | DI.CT.S_ITS ---
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 Coronal and sagittal reformats were performed. For radiation dose reduction, the following was used: automated exposure control, adjustment of mA and/or kV according to patient size. COMPARISON: None. FINDINGS: Image quality: Diagnostic. Lower Chest: Please see same day CT chest. ABDOMEN: Liver: No solid mass. Diffuse hypoattenuation of the liver. Gallbladder: No radiopaque gallstones or wall thickening. Biliary ducts: No biliary dilation. Pancreas: No ductal dilation. Spleen: Size is within normal limits. Adrenal Glands: No adrenal nodules. Kidneys and Ureters: No hydronephrosis. No solid mass. No complex renal cystic lesion which requires follow up. Stomach and Bowel: Stomach appears grossly normal. Small and large bowel is normal in caliber, without obstruction. Normal appendix (2/57). No pneumatosis, pneumoperitoneum or portal venous gas. Peritoneum: No abnormal intraperitoneal fluid. Ventral Wall: No significant ventral hernia. Abdominal Nodes: No retroperitoneal or mesenteric adenopathy by size criteria. Vessels: Aorta and inferior vena cava are normal in size. Patent hepatic, portal, splenic and bilateral renal veins. PELVIS: Pelvic Organs: Unremarkable. Bladder: No bladder wall thickening, accounting for underdistention. Pelvic Nodes: No enlarged lymph nodes. Miscellaneous: No inguinal hernias are seen. Bones: No aggressive osseous abnormality. No acute fractures. No aggressive appearing lytic or blastic osseous lesions. IMPRESSION: 1. 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 2. Diffuse hypoattenuation of the liver, suggestive of steatosis. Dictated by: Stephy Cobos M.D. on 10/22/2023 at 14:05 Approved by: Stephy Cobos M.D. on 10/22/2023 at 14:20
--- NOTE | 2023-10-22 10:20 | DI.CT.S_ITS ---
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 1 mm lung window, 5 mm thick coronal and sagittal and 7 mm axial MIP reformats were then acquired. For radiation dose reduction, the following was used: automated exposure control, adjustment of mA and/or kV according to patient size. COMPARISON: None. FINDINGS: Image quality: Diagnostic. Lower Neck: No enlarged lymph nodes. Thyroid: No thyroid nodules which require sonographic follow up, per consensus guidelines. Axillae: No enlarged lymph nodes. Chest Wall: Unremarkable. Bones: Unremarkable. Lungs and Pleura: No pneumothorax or pleural effusions. No consolidation or suspicious nodules. Heart: Heart size is normal. No pericardial effusion. Thoracic Vessels: The aorta and pulmonary arteries demonstrate normal size. Mediastinum and Marilu: No enlarged lymph nodes. Esophagus: No wall thickening. No hiatal hernia. Upper Abdomen: Please see same day CT abdomen and pelvis IMPRESSION: History of myxoid liposarcoma. No CT evidence of metastatic disease in the chest. Dictated by: Stephy Cobos M.D. on 10/22/2023 at 14:22 Approved by: Stephy Cobos M.D. on 10/22/2023 at 14:32
== END ==
PROVIDERS: PCP Student in an Organized Health Care Education/Training Program; Referring Provider Student in an Organized Health Care Education/Training Program; Visit Provider Student in an Organized Health Care Education/Training Program
DX: C49.9 Malignant neoplasm of connective and soft tissue, unspecified (principal)
CPT/HCPCS: 71250; 74177; Q9967

== ENCOUNTER 2024-05-10 16:10 | Emergency (ER) | payer OTHER, SELFPAY ==
[2024-05-10 16:21] VITALS: BP 146/82; PULSE 93; RESP 17; TEMP 36.6; O2SAT 99; BMI 32.5
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
--- NOTE | 2024-05-10 18:38 | ED_ITS ---
HPI - Back Pain/Injury General Chief Complaint: Back Pain/Injury Stated Complaint: weakness, pain s/p surgery Time Seen by Provider: 05/10/24 17:55 Source: patient Mode of arrival: Ambulatory Limitations: no limitations History of Present Illness HPI Narrative: Patient is a 28-year-old female who is here for evaluation of right-sided lower back/hip discomfort that she states radiates down to her right knee. 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 She states that the discomfort that she was having today just started in the past couple days. No specific incident that caused the pain. No urinary symptoms. No change in bowel habits. No vaginal bleeding. Is taking gabapentin and Tylenol and ibuprofen at home without much improvement. Related Data Home Medications Medication Instructions Recorded Confirmed gabapentin 300 mg capsule 600 mg PO BID 05/10/24 05/10/24 Previous Rx's Medication Instructions Recorded omeprazole 40 mg capsule,delayed 40 mg PO BID #60 caps 12/21/23 release cyclobenzaprine 10 mg tablet 10 mg PO TID PRN muscle spasm #21 05/10/24 tabs hydrocodone 5 mg-acetaminophen 325 1 tab PO Q8H PRN pain #10 tabs 05/10/24 mg tablet Allergies Allergy/AdvReac Type Severity Reaction Status Date / Time No Known Drug Allergies Allergy Verified 05/10/24 16:25 Review of Systems Review of Systems Narrative: See HPI Patient History Medical History Vaginal delivery (~09/07/21) Headache Chicken pox (~1994) HPV in female (~10/2018) Abnormal Pap smear of cervix (~10/2018) Acid reflux (~2013) Chlamydia contact, treated (~2013) Post depression (~2018) (spontaneous vaginal delivery) (~08/31/19) Accident (~2014) Surgical History [place] teeth extracted (~2014) Family History Mother Asthma Father Hypertension Diabetes mellitus Type 2 diabetes mellitus Grandmother Gastric ulcer Grandfather Diabetes mellitus Type 2 diabetes mellitus Hypertension Stroke Grandmother Abnormal thyroid screen (blood) Grandfather Stroke History of heart disease Brother No problems noted. Sister Asthma Family/Other Cancer Breast cancer Melanoma Swelling Social History marital status: number of children: 2 household members: spouse, children and other (Share a living space with X 5 people ) lives independently: No (February will get Base Housing ) housing: condominium (base housing [facility]) pets and animals: Yes (1 dog; aware of toxo precautions) education level: high school occupational status: employed ([employer]) current occupational exposures/hazards: No (on admin duty (desk job) since ) rohit/restorationism: Catholic special rohit needs: No travel history: over 6 months ago seatbelt use: always water heater temp set < 120 deg: Yes working smoke detector in home: Yes fire extinguisher in home: Yes carbon monox detector in home: Yes firearms in home: Yes firearms unloaded and locked: Yes do you feel safe at home: Yes Smoking Status: Never smoker second hand exposure: No alcohol intake: former (~1/week when not ) substance use type: does not use during the past year weight has: remained stable well-balanced diet: about half the time daily servings fruits/ve-1 (1-2) caffeine: Yes Type(s) of exercise: none Smoking Status: Never smoker alcohol intake frequency: holidays/special occasions only Substance Use Type: does not use Exam Initial Vital Signs Initial Vital Signs: Vital Signs Temperature 98 F 05/10/24 16:21 Pulse Rate 93 H 05/10/24 16:21 Respiratory Rate 17 05/10/24 16:21 Blood Pressure 146/82 H 05/10/24 16:21 Pulse Oximetry 99 05/10/24 16:21 Oxygen Delivery Method Room Air 05/10/24 16:21 Const General: cooperative and comfortable Back/Spine/Pelvis Thoracic/Lumbar Spine: No paraspinal tenderness, No thoracic spinal tenderness and No lumbar spinal tenderness Skin Other: Well-healed surgical scar posterior aspect of right thigh consistent with stated history Neuro General: patient alert, patient awake and moves all extremities Extrem General: normal to inspection and capillary refill normal Course Orders Ordered: Discontinued Medications Hydrocodone Bitart/Acetaminophen (Hydrocodone/Acet 5/325 Tablet) 1 tab PO NOW ONE Stop: 05/10/24 18:39 Last Admin: 05/10/24 18:50 Dose: 1 tab Documented By: VICENTE Ketorolac Tromethamine (Ketorolac 30 Mg/Ml Vial) 30 mg IM NOW ONE Stop: 05/10/24 18:39 Last Admin: 05/10/24 18:51 Dose: 30 mg Documented By: VICENTE Vital Signs Vital signs: Vital Signs - 8 hr 05/10/24 19:09 Pulse Rate 88 Respiratory Rate 14 Blood Pressure 140/103 H Pulse Oximetry 98 Oxygen Delivery Method Room Air MDM - Back Pain/Injury MDM Narrative Medical decision making narrative: Her presenting symptoms today are most likely not related to her recent surgery. Suspect musculoskeletal. Low suspicion for fracture. Recommended conservative treatment for now. Medication sent to the pharmacy of her choice. Recommended follow up with her primary care doctor and was given return precautions. Discharge Plan Departure Patient Disposition: Home Clinical Impression: Strain of lumbar region Instructions: DI for Low Back Pain Activity Restrictions/Additional Instructions: Continue to take all of your medications as directed. I do recommend that you try to stay as active as possible. Light stretching and ice can be helpful on your lower back as well. Continue with anti-inflammatory such as Motrin/Naprosyn. You can also take Tylenol. Use the medications that you were given a prescription for today as directed. Contact your primary doctor for a follow-up. Prescriptions: New cyclobenzaprine 10 mg tablet 10 mg PO TID PRN (Reason: muscle spasm) Qty: 21 0RF hydrocodone-acetaminophen 5-325 mg tablet 1 tab PO Q8H PRN (Reason: pain) Qty: 10 0RF No Action omeprazole 40 mg capsule,delayed release(DR/EC) 40 mg PO BID Qty: 60 3RF gabapentin 300 mg capsule 600 mg PO BID Referrals: Trevon Penn [Primary Care Provider] - Stand Alone Forms: Patient Portal/API
[2024-05-10] MEDS: HYDROCODONE/ACET 5/325 TABLET 1 TAB PO (18:50)
[2024-05-10] MEDS: KETOROLAC 30 MG/ML VIAL IM (18:51)
[2024-05-10 19:09] VITALS: BP 140/103; PULSE 88; RESP 14; O2SAT 98
== END 2024-05-10 19:10 | disposition home or self-care (01) ==
PROVIDERS: Emergency Provider Emergency Medicine; PCP Student in an Organized Health Care Education/Training Program
DX: S39.012A Strain of muscle, fascia and tendon of lower back, initial encounter (principal)
CPT/HCPCS: 96372; 99283; J1885